=== PATIENT | female | born 1975 | race Caucasian/White ===

== ENCOUNTER 2016-11-19 10:58 | Day surgery (SDC) | payer MEDICAID ==
--- NOTE | 2016-11-19 11:52 | ED Physician Chart ---
Chief Complaint/HPI - Patient Information Date Seen:: 11/19/16 Time Seen:: 11:16 Chief Complaint:: malfunction of the chest access linethi History of Present Illness:: THIS IS A 41 YEAR OLD FEMALE DIALYSIS PATIENT WHO IS HERE FOR PLACEMENT OF NEW ACCESS SITE FOR HER DIALYSIS. Allergies:: Allergies Allergy/AdvReac Type Severity Reaction Status Date / Time No Known Allergies Allergy Verified 11/19/16 11:26 Vitals:: Vital Signs - 8 hr 11/19/16 11:07 Temp 97.9 F HR 76 RR 20 BP 113/52 O2 Sat % 100 Historian:: Patient, Medical Records Review:: Nurse's Note Reviewed Review of Systems - Review of Systems General/Constitutional: No fever, No chills, No weight loss, No weakness, No diaphoresis, No edema, No loss of appetite Skin: Skin lesions (REDNESS OF THE SKIN AROUND THE CATHETER LINE IN THE LEFT CHEST.), No rash, No bruising Head: No headache, No light-headedness Eyes: No loss of vision, No pain, No diplopia ENT: No earache, No nasal drainage, No sore throat, No tinnitus Neck: No neck pain, No swelling, No thyromegaly, No stiffness, No mass noted Cardio Vascular: No chest pain, No palpitations, No PND, No orthopnea, No edema Pulmonary: No SOB, No cough, No sputum, No wheezing GI: No nausea, No vomiting, No diarrhea, No pain, No melena, No hematochezia, No constipation, No hematemesis G/U: No dysuria, No frequency, No hematuria Musculoskeletal: No bone or joint pain, No back pain, No muscle pain Endocrine: No polyuria, No polydipsia Psychiatric: No prior psych history, No depression, No anxiety, No suicidal ideation Hematopoietic: No bruising, No lymphadenopathy Allergic/Immuno: No urticaria, No angioedema Neurological: No syncope, No focal symptoms, No weakness, No paresthesia, No headache, No seizure, No dizziness, No confusion, No vertigo Past Medical History - Past Medical History Obtainable: Yes Past Medical History: ESRD, Other (LUPUS) Family History: None Social History: Non Smoker, No Alcohol, No Drug Use Surgical History: other (CATHERTER PLACEMENT) Family Medical History - Family Member Father History Unknown: Yes Name:: CLAUDETTE BANKS Age: 70 Ethnicity: Living Status: Hx Family Cancer: Yes (SKIN CA) Physical Exam - Physical Examination General/Constitutional: Awake, Well-developed, well-nourished, Alert, No distress, GCS 15, Non-toxic appearing, Ambulatory Other Gen/Cons comments:: THE CATHERTER IS NOT WORKING PROPERLY. Head: Atraumatic Eyes: Lids, conjuctiva normal, PERRL, EOMI Skin: No rash, No ecchymosis, Well hydrated, No lymphadenopathy Other Skin comments:: THERE IS REDNESS AND TENDERNESS AROUND THE LEFT CHEST ENTRANCE SITE OF THE CATHETER. ENMT: External ears, nose nl, Nasal exam nl, Lips, teeth, gums nl Neck: Nontender, Full ROM w/o pain, No JVD, No nuchal rigidity, No bruit, No mass, No stridor Respiratory: Nl effort/Exclusion, Clear to Auscultation, No Wheeze/Rhonchi/Rales Cardio Vascular: RRR, No murmur, gallop, rubs, NL S1 S2 GI: No tenderness/rebounding/guarding, No organomegaly, No hernia, Normal BS's, Nondistended, No mass/bruits, No McBurney tenderness : No CVA tenderness Extremities: No tenderness or effusion, Full ROM, normal strength in all extremities, No edema, Normal digits & nails Neuro/Psych: Alert/oriented, DTR's symmetric, Normal sensory exam, Normal motor strength, Judgement/insight normal, Mood normal, Normal gait, No focal deficits Misc: normal gait, Normal back, No paraspinal tenderness ED Septic Shock - . Is Septic Shock (SBP<90, OR Lactate>4 mmol\L) present?: No - <6hrs of presentation: Vital Signs: Vital Signs - 8 hr 11/19/16 11:07 Temp 97.9 F HR 76 RR 20 BP 113/52 O2 Sat % 100 Reassessment (Disposition) - Reassessment Reassessment Condition:: Unchanged - Diagnosis Diagnosis:: CATHETER ACCESS LINE MALFUNCTIONING. - Patient Disposition Discharge/Transfer:: Acute Care w/in this hosp Admitting Medical Physician:: Ap Carty Condition at Disposition:: Stable
[2016-11-19 12:03] LABS: % BASOPHILS 0.7 % (0.0-2.0); % EOSINOPHILS 11.8 % (0.0-5.0); % MONOCYTES 8.8 % (2.0-10.0); % NEUTROPHILS 58.7 % (40.0-80.0); MEAN CELL VOLUME 91.6 fl (81-100); MEAN CORPUSCULAR HEMOGLOBIN 31.1 pg (27.0-31.0); MEAN CORPUSCULAR HGB CONC 33.9 pg (28.0-36.0); MEAN PLATELET VOLUME 7.4 fl; PROTHROMBIN TIME (TEST) 9.9 SECONDS (9.5-11.5); RED BLOOD COUNT 3.89 Mil/cmm (3.80-5.10); RED CELL DISTRIBUTION WIDTH 14.1 % (11.5-20.0); WHITE BLOOD COUNT 6.7 Th/cmm (4.8-10.8)
[2016-11-19 12:07] LABS: ALB/GLOB RATIO 1.2 (1.0-1.8); ANION GAP 9.8 (7.0-16.0); BILIRUBIN,TOTAL 0.6 mg/dL (0.3-1.0); BUN/CREATININE RATIO 7.7; CALCIUM SERUM 10.7 mg/dL (8.6-10.3); CARBON DIOXIDE 27.4 mEq/L (21.0-31.0); CHOLESTEROL 151 mg/dL (<200); POTASSIUM SERUM 3.2 mEq/L (3.5-5.1); TRIGLYCERIDES 244 mg/dL (<150)
[2016-11-19 12:10] LABS: HEMATOCRIT 35.7 % (35.0-45.0); HEMOGLOBIN 12.1 gm/dL (11.7-15.5); PLATELET COUNT 240 Th/cmm (150-400)
[2016-11-19 12:14] LABS: URINE BILIRUBIN NEGATIVE (NEGATIVE); URINE COLOR YELLOW; URINE GLUCOSE (UA) NEGATIVE (NEGATIVE)
[2016-11-19 12:15] LABS: URINE BLOOD TRACE (NEGATIVE); URINE KETONE NEGATIVE (NEGATIVE); URINE PH 7.5; URINE PROTEIN 100 mg/dL (NEGATIVE); URINE UROBILINOGEN 0.2 E.U./dL (0.2 - 1.0)
[2016-11-19] MEDS ORDERED: Meperidine 25 mg/mL 1mL Syr IVP PRN ×2 (12:17→13:13)
[2016-11-19] MEDS ORDERED: Lactated Ringer 1,000 ML IV SCH ×2 (12:30)
[2016-11-19] MEDS ORDERED: Midazolam 1mg/ml 2 ml vial IV ONE (12:54)
[2016-11-19 14:14] LABS: URINE BACTERIA NONE SEEN /hpf (NONE SEEN); URINE EPITHELIAL CELLS FEW /lpf (FEW); URINE RBC 0-2 /hpf (0-5)
--- NOTE | 2016-11-19 22:53 | Admit Criteria Form ---
Admit Criteria Forms - Admit Criteria Diagnosis: INFECTION, THROMBOSIS, OR OTHER COMPLICATION OF INTRAVENOUS DEVICE Clinical Indications for Admission to Inpatient Care (Place 'X' for any and all applicable criteria): Admission is indicated for ANY ONE of the following (1)(2): [ ]I. Catheter-related bloodstream infection and ANY ONE of the following (3) (4): [ ]a) Hemodynamic instability [ ]b) Metastatic infection requiring inpatient care (eg, endocarditis , septic emboli)(5) [ ]c) Patient has constitutional symptoms (eg, fever, chills), is immunocompromised, or is at increased risk for severe infection as indicated by ANY ONE of the following: [ ]i) Chronic use of immunosuppressive medication [ ]ii) Asplenic [ ]iii) Bone marrow disease [ ]iv) Extremities of age (eg, frail elderly, ) [ ]v) Severe comorbidity (eg, poorly controlled diabetes, metastatic malignancy, symptomatic heart failure) [ ]vi) Other indicator of immunocompromise [ ]d) Appropriate care cannot be provided in home or outpatient setting. [ ]II. Catheter-related thrombosis requiring systemic anticoagulation that cannot be managed on an outpatient basis(6) [X]III. Catheter-related complication that cannot be managed on outpatient basis as indicated by ANY ONE of the following (7)(8)(9)(10): [ ]a) Thrombotic or air embolization from catheter [ ]b) Catheter fracture [ ]c) Cardiac arrhythmia due to catheter (eg, catheter tip misplacement) [ ]d) Cardiac tamponade [ ]e) Hemothorax (eg, from vascular injury) [ ]f) Tension pneumothorax [X]g) Vascular injury from puncture requiring acute surgical or endovascular repair Extended stay beyond goal length of stay may be needed for(2): [ ]a) Persistent Hemodynamic instability [ ]b) Endocarditis [ ]c) Continued fever or bacteremia [ ]d) End-stage renal disease [ ]e) Inability to provide needed care in home environment [ ]f) Inpatient anticoagulation The original [facility] content created by [facility] has been revised. The portions of the content which have been revised are identified through the use of italic text or in bold, and [facility] has neither reviewed nor approved the modified material. All other unmodified content is copyright [facility]. Please see references footnoted in the original [facility] edition 2016 Admit Criteria Met?: Yes
--- NOTE | 2016-11-20 10:24 | Pathology Report ---
[id number] Collection date: 11/19/2016 Surgeon: Dr. Familia Carty Specimen Description: Catheter tip Gross Description: Received in formalin is a 2.0 cm in length x 0.2 cm in diameter portion of plastic white catheter. There are no tissue fragments appreciated. Gross Pathologic Diagnosis: Portion of catheter tip, for gross identification. [facility]# [id number] [id number]
--- NOTE | 2016-11-20 15:04 | Operative Report ---
PREOPERATIVE DIAGNOSES: 1. Infected Perm-A-Cath. 2. End-stage renal disease, on hemodialysis. POSTOPERATIVE DIAGNOSES: 1. Infected Perm-A-Cath. 2. End-stage renal disease, on hemodialysis. OPERATION DONE: 1. Removal of PermCath. 2. Culture and sensitivity of catheter tip. SURGEON: Carloz De Souza M.D. ANESTHESIA: MAC. ANESTHESIOLOGIST: Ysabel Vicente M.D. DETAILS OF PROCEDURE: The patient was given IV sedation. The exit site of the catheter was cultured and then prepped with Betadine. Then, 1% lidocaine with epinephrine was used to prep the catheter and the chest wall. Then, 1% lidocaine was used to infiltrate around the area of the catheter and sharp scissors were used to dislodge the cuff from the subcutaneous tissues. The catheter then pulled out with pressure and the tip of the catheter was sent in a sterile cup for culture and sensitivity. The patient tolerated the procedure well. JOB# [id number]
== END 2016-11-19 14:55 | disposition home or self-care (01) ==
LOC: ER 10:58 → MSII 12:25 → ER 12:25 → MSII 12:55
PROVIDERS: ATTEND Specialist
DX: T82.7XXA Infection and inflammatory reaction due to other cardiac and vascular devices, implants and grafts, initial encounter (principal); Y83.9 Surgical procedure, unspecified as the cause of abnormal reaction of the patient, or of later complication, without mention of misadventure at the time of the procedure; Y92.9 Unspecified place or not applicable; Z99.2 Dependence on renal dialysis; N18.6 End stage renal disease
CPT/HCPCS: 36589; 84484; 36415; 87205; 84443; 86592; 85025; 85610; 85730; 81001; 80053; 80061; 87040 ×2; 93005; 87075; 87070; J2704; J2250; J0690 ×2; 88300-TC; J2001; Z7610